=== PATIENT | female | born 1985 | race Two or more races ===

== ENCOUNTER 2018-03-08 13:40 | Emergency (ER) | payer BC, OTHER ==
--- NOTE | 2018-03-08 13:58 | Emergency Department Record ---
History of Present Illness - General Chief Complaint: Ankle/Foot Injury Stated Complaint: RT FOOT PAIN/SWELLING Time Seen by Provider: 03/08/18 13:44 Source: Patient Mode of Arrival: Wheelchair Limitations: No limitations - History of Present Illness Initial Comments: The patient is here due to R foot pain. She twisted and injured it 2 days ago after a dog leash was wrapped around it and then the dog took off running. She has not been able to walk on it. MD Complaint: Foot injury Onset/Timin -: Days(s) Type of Injury: Blunt, Other Place: Home Severity: Mild Severity scale (1-10): 2 Improves With: Nothing Worsens With: Nothing Context: Other Associated Symptoms: Swelling, Tingling, Unable to bear weight - Related Data Home Medications Medication Instructions Recorded Confirmed Last Taken L.acidoph,Paracasei, B.lactis 1 each PO ASDIR 03/08/18 03/08/18 03/08/18 [Probiotic] Multivitamin [Daily Multiple 1 each PO DAILY 03/08/18 03/08/18 03/08/18 Vitamin] Allergies Allergy/AdvReac Type Severity Reaction Status Date / Time amoxicillin [From Augmentin] Allergy HIVES Verified 03/08/18 13:55 clavulanic acid Allergy HIVES Verified 03/08/18 13:55 [From Augmentin] gluten Allergy HYPERSENSIT Verified 03/08/18 13:56 IVITY lactase [From Dairy Aid] Allergy CONGESTION Verified 03/08/18 13:56 Pertussis Vaccines Allergy HYPERSENSIT Verified 03/08/18 13:55 IVITY Sulfa (Sulfonamide Allergy PT UNSURE Verified 03/08/18 13:55 Antibiotics) OF REACTION Travel Screening - Travel/Exposure Within Last 30 Days Have you traveled within the last 30 days?: No - Travel/Exposure Within Last Year Have you traveled outside the [place] in the last year?: No - Additonal Travel Details Have you been exposed to anyone with a communicable illness?: No - Travel Symptoms Symptom Screening: None Review of Systems Constitutional: Denies: Chills, Fever Eyes: Denies: Eye discharge ENT: Denies: Congestion Respiratory: Denies: Cough Past Medical History - SOCIAL HISTORY Smoking Status: Never smoker Alcohol Use: Rare Drug Use: None - RESPIRATORY Hx Respiratory Disorders: No - CARDIOVASCULAR Hx Cardio Disorders: No - NEURO Hx Neuro Disorders: Yes Hx Seizures: Yes (when was child) - GI Hx GI Disorders: Yes Hx Celiac Disease: Yes (intolerance) - Hx Genitourinary Disorders: Yes Hx UTI: Yes - ENDOCRINE Hx Endocrine Disorders: No - MUSCULOSKELETAL Hx Musculoskeletal Disorders: No - PSYCH Hx Psych Problems: No - HEMATOLOGY/ONCOLOGY Hx Hematology/Oncology Disorders: No Family Medical History Any Significant Family History?: No Physical Exam - General General Appearance: Alert, Oriented x3, Cooperative, No acute distress - Head Head exam: Atraumatic, Normocephalic, Normal inspection - Eye Eye exam: Normal appearance, PERRL - Extremities Extremities exam: Normal capillary refill, Tenderness (There is diffuse foot tenderness.). negative: Normal inspection (There is significant swelling to the dorsal foot. There is no leg or ankle swelling or tenderness.), Joint swelling (There is no ankle tenderness.), Pedal edema Course Vital Signs 03/08/18 13:43 Temperature 97.6 F Pulse Rate 92 H Respiratory 16 Rate Blood Pressure 106/68 Pulse Ox 98 - Reevaluation(s) Reevaluation #1: I did discuss the neg foot xrays with the patient and the need for ice, elevation and Ortho F/U. 03/08/18 14:38 Medical Decision Making - Data Complexity MDM Data: X-Ray Ordered and/or Reviewed - Radiology Data Radiology results: Report reviewed (R foot: Dorsal soft tissue swelling, O/W neg.) Disposition Disposition: Discharge Clinical Impression: Sprain of foot, right Qualifiers: Encounter type: initial encounter Qualified Code(s): S93.601A - Unspecified sprain of right foot, initial encounter Disposition: Home, Self-Care Condition: (2) Stable Instructions: Foot Sprain (ED) Additional Instructions: Please ice and elevate the R foot for the next 2 days and no walking on it for a week. Please wear the walking boot at all times and use your crutches for walking. Please see an Orthopedic doctor this week for recheck and use Motrin for pain. Forms: Patient Portal Access Time of Disposition: 14:39 Quality - Quality Measures Quality Measures: N/A - Blood Pressure Screening View Details: Yes Does Patient Have Any of the Following: No Blood Pressure Classification: Normal BP Reading Systolic Measurement: 115 Diastolic Measurement: 67 Screening for High Blood Pressure: < Normal BP, F/U Not Required > [G8783]
--- NOTE | 2018-03-09 07:29 | RADIOLOGY REPORT ---
EXAM: RIGHT FOOT HISTORY: PAIN. TECHNIQUE: Three views of the right foot were obtained. Comparison: None. FINDINGS: Negative for acute fracture or dislocation. Mild dorsal soft tissue swelling. The joint spaces are preserved. Tiny calcaneal spurs. IMPRESSION: DORSAL SOFT TISSUE SWELLING. NO ACUTE OSSEOUS ABNORMALITY. JOB NUMBER: [id number] MTDD
== END 2018-03-08 14:45 | disposition home or self-care (01) ==
LOC: ER 13:40
DX: S93.601A Unspecified sprain of right foot, initial encounter (principal); X50.0XXA Overexertion from strenuous movement or load, initial encounter; Y93.K1 Activity, walking an animal
CPT/HCPCS: 99283

== ENCOUNTER 2018-03-12 16:28 | Emergency (ER) | payer BC ==
--- NOTE | 2018-03-12 16:45 | Emergency Department Record ---
History of Present Illness - General Chief Complaint: Recheck - Other Stated Complaint: RT LEG RECHECK Time Seen by Provider: 03/12/18 16:38 Source: Patient Mode of arrival: Ambulatory Limitations: No limitations - History of Present Illness Initial Comments: The patient is here for recheck of a R leg injury. She initially injured the R foot 6 days ago. She was walking a dog and the leash got wrapped around her R foot. The dog then took off running and the leash torqued and twisted the R foot causing significant pain. The patient was seen here in the ER 4 days ago and had a neg R foot xray. She has been unable to see her PCP so she came back here for recheck. The patient states the pain and swelling are improved. MD Complaint: Wound re-check Onset/Timin -: Days(s) Initial Visit For: Other Symptoms Since Prior Visit: No new symptoms Associated Symptoms: None - Related Data Allergies Allergy/AdvReac Type Severity Reaction Status Date / Time amoxicillin [From Augmentin] Allergy HIVES Verified 03/12/18 16:33 clavulanic acid Allergy HIVES Verified 03/12/18 16:33 [From Augmentin] gluten Allergy HYPERSENSIT Verified 03/12/18 16:33 IVITY lactase [From Dairy Aid] Allergy CONGESTION Verified 03/12/18 16:33 Pertussis Vaccines Allergy HYPERSENSIT Verified 03/12/18 16:33 IVITY Sulfa (Sulfonamide Allergy PT UNSURE Verified 03/12/18 16:33 Antibiotics) OF REACTION Travel Screening - Travel/Exposure Within Last 30 Days Have you traveled within the last 30 days?: No Review of Systems Constitutional: Denies: Chills, Fever Eyes: Denies: Eye discharge ENT: Denies: Congestion Respiratory: Denies: Cough, Dyspnea Past Medical History - SOCIAL HISTORY Smoking Status: Never smoker Alcohol Use: None Drug Use: None - RESPIRATORY Hx Respiratory Disorders: No - CARDIOVASCULAR Hx Cardio Disorders: No - NEURO Hx Neuro Disorders: Yes Hx Seizures: Yes (when was child) - GI Hx GI Disorders: Yes Hx Celiac Disease: Yes (intolerance) - Hx Genitourinary Disorders: Yes Hx UTI: Yes - ENDOCRINE Hx Endocrine Disorders: No - MUSCULOSKELETAL Hx Musculoskeletal Disorders: No - PSYCH Hx Psych Problems: No - HEMATOLOGY/ONCOLOGY Hx Hematology/Oncology Disorders: No Family Medical History Any Significant Family History?: No Physical Exam - General General Appearance: Alert, Cooperative, No acute distress - Head Head exam: Atraumatic, Normocephalic - Eye Eye exam: Normal appearance, PERRL - Extremities Extremities exam: Normal capillary refill, Tenderness (There is significant tenderness to the R dorsal foot diffusely.), Other (The R foot is NVI. There are normal DP pulses bilaterally.). negative: Normal inspection (There is significan swelling and bruising to the R foot. It is mildly improved from 4 days ago.), Full ROM (There is decreased R ankle and foot ROM due to pain. There does not appear to be any ligamentous laxity.), Joint swelling, Pedal edema Course Vital Signs 03/12/18 16:33 Temperature 97.5 F L Pulse Rate 79 Respiratory 18 Rate Blood Pressure 115/69 Pulse Ox 98 - Reevaluation(s) Reevaluation #1: I did explain to the patient that the foot swelling does appear slightly improved and less tender. Due to all the xrays being normal I do feel she must have significant ligamentous injury. She is to stay in the walking boot and use crutches and see Dr. Kinney next week for recheck. 03/12/18 17:24 Medical Decision Making - Data Complexity MDM Data: X-Ray Ordered and/or Reviewed - Radiology Data Radiology results: Report reviewed (R ankle: Neg.) Disposition Disposition: Discharge Clinical Impression: Sprain of foot, right Qualifiers: Encounter type: subsequent encounter Qualified Code(s): S93.601D - Unspecified sprain of right foot, subsequent encounter Disposition: Home, Self-Care Condition: (2) Stable Instructions: Foot Sprain (ED) Additional Instructions: Please continue your home pain medicines and ice and elevate the foot when possible. No walking on the R foot until seen by Dr. Kinney next week. Return to the ER for any worsening symptoms. Referrals: [facility] [Provider Group] Forms: Patient Portal Access Time of Disposition: 17:14 Quality - Quality Measures Quality Measures: N/A - Blood Pressure Screening View Details: Yes Does Patient Have Any of the Following: No Blood Pressure Classification: Normal BP Reading Systolic Measurement: 115 Diastolic Measurement: 69 Screening for High Blood Pressure: < Normal BP, F/U Not Required > [G8783]
--- NOTE | 2018-03-13 10:00 | RADIOLOGY REPORT ---
EXAM: RIGHT ANKLE HISTORY: PAIN. TECHNIQUE: Three views of the right ankle were obtained. Comparison: Right foot from 03/08/18. FINDINGS: Diffuse soft tissue swelling. Negative for acute fracture or dislocation. The ankle mortise is intact. Some equivocal spur formation along the dorsal aspect of the tarsal navicular. The joint spaces are otherwise preserved. IMPRESSION: SOFT TISSUE SWELLING. NO ACUTE OSSEOUS ABNORMALITY. JOB NUMBER: [id number] [facility]
== END 2018-03-12 17:23 | disposition home or self-care (01) ==
LOC: ER 16:28
DX: S93.601A Unspecified sprain of right foot, initial encounter (principal); X50.0XXA Overexertion from strenuous movement or load, initial encounter; Y93.K1 Activity, walking an animal
CPT/HCPCS: 99283